=== PATIENT | male | born 1985 | race African-American/Black ===

== ENCOUNTER 2020-02-07 16:04 | Inpatient (IN) | payer OTHER, SELFPAY ==
[~2020-02-07 16:04] MED LIST: Iopamidol-370 76% 500 ML 1 ML ONE
[2020-02-07] MEDS ORDERED: Lidocaine Viscous Sol 2% 15 ml UD Cup ONE (16:35)
[2020-02-07] MEDS ORDERED: Haloperidol Lactate 5 MG/ML VIAL ONE (16:35)
[2020-02-07] MEDS ORDERED: Mag-Al 1200 mg/1200 mg/30 ML UDCUP ONE (16:35)
[2020-02-07 16:39] LABS: #Lymphocytes 0.9 thou/uL (1.20-3.40); #Monocytes 0.3 thou/uL (0.11-0.59); #Neutrophils 4.7 thou/uL (1.40-6.50); %Basophils 0.2 % (0.0-1.0); %Eosinophils 0.1 % (0.0-10.0); %Neutrophils 79.7 % (42.0-75.0); Hemoglobin 15.5 g/dL (14.0-18.0); Mean Corpuscular HGB CONC 33.8 g/dL (32.0-36.0); Mean Corpuscular Hemoglobin 30.8 pg (27.0-31.0); Mean Corpuscular Volume 91.3 fL (78.0-98.0); Mean Platelet Volume 6.4 fL (7.4-10.4); Platelet Count 326 thou/uL (130-400); Red Blood Cell (RBC) Count 5.02 mill/uL (4.70-6.10); White Blood Cell (WBC) Count 5.9 thou/uL (4.8-10.8)
[2020-02-07 16:58] LABS: ALT (SGPT) 32 U/L (8-55); AST (SGOT) 29 U/L (5-34); Alkaline Phosphatase 54 U/L (40-110); Anion Gap 16 mmol/L (10-20); BUN (Urea Nitrogen) 21 mg/dL (8.9-20.6); Bilirubin, Total 0.9 mg/dL (0.2-1.2); Calc. Creatinine Clearance 0 mL/min (70-130); Calcium 10.1 mg/dL (7.8-10.44); Carbon Dioxide 28 mmol/L (22-29); Chloride 100 mmol/L (98-107); Estimated GFR-MDRD 61; Globulin 3.5 g/dL (2.4-3.5); Glucose 123 mg/dL (70-105); Lipase 606 U/L (8-78); Potassium 4.5 mmol/L (3.5-5.1); Protein, Total 8.5 g/dL (6.0-8.3); Sodium 139 mmol/L (136-145)
[2020-02-07] MEDS ORDERED: Ondansetron PF 4 MG/2 ML Vial ONE (19:21)
[2020-02-07] MEDS ORDERED: Morphine 4 MG/ML VIAL ONE (19:21)
--- NOTE | 2020-02-07 19:25 | CT ---
CT OF THE ABDOMEN AND PELVIS WITH IV CONTRAST; 02/07/20 INDICATION: History of abdominal pain with nausea and vomiting. COMPARISON: Prior study dated 12/28/19. FINDINGS: The lung bases are clear. There is a tiny cyst within the right hepatic lobe which is stable appearin g. Gallbladder, pancreas, adrenal glands and spleen appear within normal limits. The kidneys reveal no d efinite acute abnormality. No free fluid or enlarged lymph nodes are evident. There is a normal appendix in the right lower quadrant. The unopacified large and small bowel are of normal caliber. No free fluid is evident in the pelvis. The bladder, rectum, and perirectal soft tissues are unremark able appearing. No definite acute osseous abnormality is evident. IMPRESSION: No CT explanation for the patient's abdominal pain and nausea and vomiting. POS: BH
--- NOTE | 2020-02-07 19:55 | PDOC.FPRHP ---
- History of Present Illness Chief Complaint: Abdominal Pain History of Present Illness: 34yo male presents with abdominal pain for 3 days. Pain started on Sunday, described as cramping pain, located midepigastric, no radiation, associated nausea and vomiting. Tried to stay hydrated and pain greatly improved on ay- was no longer vomiting. Pain returned on Sunday. Pain worse with food such as [place] fries. Hasn't eaten since Sunday. Reports drinking 2-3 beers on Sunday. Has been drinking gatorade and water to alleviate sx. Hx of abdominal pain and multiple ED visits but denies hx of pancreatitis.Denies fever, hematemesis, diarrhea, or sick contacts. ED Course: morphine, haldol, zofran, GI cocktail, 1L IVF - Allergies/Adverse Reactions Allergies Allergy/AdvReac Type Severity Reaction Status Date / Time codeine Allergy Verified 02/08/20 00:09 - History PMHx: Denies PSHx: Denies FHx: Mother- HTN Social: Occasional alcohol use. A couple drinks on weekends. Current smoker, 3-4 cigarettes per day. Rare Marijuana use once every 2-3 weeks. Works for [email or web address] and [employer] - Review of Systems General: reports: weight/appetite/sleep changes ( appetite). denies: fever/chills Eyes: denies: vision changes ENT: denies: nasal congestion, rhinorrhea Respiratory: denies: cough, congestion, shortness of breath Cardiovascular: denies: chest pain Gastrointestinal: reports: nausea, vomiting, abdominal pain Genitourinary: denies: dysuria, polyuria Skin: denies: rashes, itching Musculoskeletal: denies: pain, tenderness Neurological: denies: numbness, syncope - Vital signs BP: 156/97 HR: 57 RR: 17 Tmax: 98.5 - Physical Exam Constitutional: NAD, awake, alert and oriented, well developed HEENT: normocephalic and atraumatic, conjunctiva clear, no scleral icterus, grossly normal vision, grossly normal hearing, MMM, oropharynx clear Neck: supple, FROM Chest: no-tender to palpation Heart: RRR, normal S1/S2, no murmurs/rubs/gallops, pulses present, no edema Lungs: CTAB, no respiratory distress, no wheezing Abdomen: soft, bowel sounds present -Abdomen: tender to palpation midepigastric, negative Davis's sign Musculoskeletal: normal structure, normal tone Neurological: no focal deficit, normal sensation Skin: no rash/lesions, no jaundice Heme/Lymphatic: no unusual bruising or bleeding Psychiatric: normal mood and affect, intact recent and remote memory FMR H&P: Results - Labs Result Diagrams: 02/07/20 16:22 02/08/20 03:29 Lab results: WBC 5.9 thou/uL (4.8-10.8) 02/07/20 16:22 Hgb 15.5 g/dL (14.0-18.0) 02/07/20 16:22 Hct 45.8 % (42.0-52.0) 02/07/20 16:22 MCV 91.3 fL (78.0-98.0) 02/07/20 16:22 Plt Count 326 thou/uL (130-400) 02/07/20 16:22 Neutrophils % 79.7 % (42.0-75.0) H 02/07/20 16:22 Sodium 139 mmol/L (136-145) 02/07/20 16:22 Potassium 4.5 mmol/L (3.5-5.1) 02/07/20 16:22 Chloride 100 mmol/L (98-107) 02/07/20 16:22 Carbon Dioxide 28 mmol/L (22-29) 02/07/20 16:22 BUN 21 mg/dL (8.9-20.6) H 02/07/20 16:22 Creatinine 1.59 mg/dL (0.7-1.3) H 02/07/20 16:22 Glucose 123 mg/dL (70-105) H 02/07/20 16:22 Calcium 10.1 mg/dL (7.8-10.44) 02/07/20 16:22 Total Bilirubin 0.9 mg/dL (0.2-1.2) 02/07/20 16:22 AST 29 U/L (5-34) 02/07/20 16:22 ALT 32 U/L (8-55) 02/07/20 16:22 Alkaline Phosphatase 54 U/L (40-110) 02/07/20 16:22 Serum Total Protein 8.5 g/dL (6.0-8.3) H 02/07/20 16:22 Albumin 5.0 g/dL (3.5-5.0) 02/07/20 16:22 Lipase 606 U/L (8-78) H 02/07/20 16:22 FMR H&P: A/P - Plan #Pancreatitis -lipase 606, CT ab/pelv: no explanation for abd pain, N/V -Juan's criteria: 0 points -given 1L NS in ED, currently on LR @ 200ml/hr -zofran prn, morphine prn -clear liquid diet, will advance as tolerated -pending RUQ US, lipid panel #TTUU -BUN/Cr 03/06.59 -likely due to N/V and decrease po -treating with IVF as above Code: Full DVT ppx: SCDs Diet: Clears PCP: none Dispo: Admit inpatient medical, LOS>48hrs FMR H&P: Upper Level - Plan Date/Time: 02/07/201954 34yo previously healthy male presents for cramping abdominal pain, nausea and vomiting that started 01/03. Symptoms actually improved on 01/04 but returned the next day. He has not eaten since Sunday but has been able to drink water and Gatorade. Symptoms worse after eating especially foods like [place] fries. No hx of pancreatitis. Pain and nausea are now controlled after receiving Mrophine 8mg, Zofran 4mg, Haldol 15mg, GI cocktail and 1L NS. PE: VSS General: NAD CV: RRR, no murmur Pulm: CTA b/l Abdomen: Epigastric tenderness. Soft, No rebound or rigidity. A/P: Pancreatitis -Lipase 606 with epigastric pain on exam. CT abdomen/pelvis no acute findings. [place]:0. Zofran for nausea, Morphine PRN for pain. LR @200. Clear fluid diet, advance as tolerated. Admit to medical. TUTU - LR @200, BMP in AM. I, Miladis Cardenas, have evaluated this patient and agree with findings/plan as outlined by recording studio internship resident. Pertinent changes/additions are listed here. Addendum - Attending - Attending Attestation Date/Time: 02/08/20 [id number] I personally evaluated the patient and discussed the management with Dr. Pike. I agree with the History, Examination, Assessment and Plan documented above with any addition or exceptions noted below.
[2020-02-07] MEDS ORDERED: Ondansetron PF 4 MG/2 ML Vial IVP PRN (20:37)
[2020-02-07] MEDS ORDERED: Ondansetron ODT 4 MG TAB PO PRN (20:37)
[2020-02-07] MEDS ORDERED: Acetaminophen 650 MG Suppository PR PRN (20:37)
[2020-02-07] MEDS ORDERED: Acetaminophen 325 MG TAB PO PRN (20:37)
[2020-02-07] MEDS ORDERED: Morphine 2 MG/ML VIAL SLOW IVP PRN (20:39)
[2020-02-07 21:35] LABS: Bacteria/HPF None Seen HPF (None Seen); Bilirubin Negative (Negative); Blood, Urine Negative (Negative); Clarity Clear (Clear); Glucose, Urine (Dipstick) Normal (Negative); Ketone, Urine Negative (Negative); Leukocyte Negative Leu/uL (Negative); Nitrite Negative (Negative); Protein, Urine (Dipstick) 30 mg/dL (Neg-Trace); Squamous Epithelial None Seen HPF (0-3); Urobilinogen Normal mg/dL (Less than 2); WBC/HPF 0-3 HPF (0-3); pH, Urine 8.5 (5.0-9.0)
[2020-02-07 21:37] LABS: Specific Gravity, Urine 1.063 (1.002-1.036)
[2020-02-07] MEDS: Morphine 10 MG/ML VIAL SLOW IVP PRN (22:16)
[2020-02-07] MEDS: Lactated Ringer's 1,000 ML IV SCH (22:17)
[2020-02-08 00:26] VITALS: BMI 26.6
[2020-02-08] MEDS: Morphine 10 MG/ML VIAL SLOW IVP PRN (02:58)
[2020-02-08] MEDS: Lactated Ringer's 1,000 ML IV SCH ×5 (02:58→22:28)
[2020-02-08 04:16] LABS: ALT (SGPT) 24 U/L (8-55); AST (SGOT) 24 U/L (5-34); Albumin 3.9 g/dL (3.5-5.0); Alkaline Phosphatase 43 U/L (40-110); Anion Gap 10 mmol/L (10-20); BUN (Urea Nitrogen) 16 mg/dL (8.9-20.6); Calc. Creatinine Clearance 101 mL/min (70-130); Calcium 8.6 mg/dL (7.8-10.44); Carbon Dioxide 27 mmol/L (22-29); Cardiac Risk 2.7 (Less than 4.5); Chloride 100 mmol/L (98-107); Cholesterol 173 mg/dl (< 200 Desired); Estimated GFR-MDRD 79; Globulin 2.7 g/dL (2.4-3.5); Glucose 101 mg/dL (70-105); HDL Cholesterol 65 mg/dL (>60 Neg Risk); LDL Cholesterol, Calculated 96 mg/dL; Potassium 3.4 mmol/L (3.5-5.1); Protein, Total 6.6 g/dL (6.0-8.3); Sodium 134 mmol/L (136-145); Triglycerides 58 mg/dL (Less than 150)
--- NOTE | 2020-02-08 06:08 | PDOC.FM ---
- Subjective Subjective: No acute overnight events. Feeling improved this AM. Tolerated clear fluids last night, feeling somewhat hungry. Still has mild abdominal pain, bothers him intermittently. Denies nausea, vomiting. - Objective Vital Signs & Weight: Vital Signs (12 hours) Temp Pulse Resp BP Pulse Ox 02/08/20 04:00 97.8 F 77 14 129/69 99 02/07/20 22:08 99.1 F 61 16 149/83 H 98 Weight Weight 86.636 kg Result Diagrams: 02/07/20 16:22 02/08/20 03:29 Phys Exam - Physical Examination Constitutional: NAD HEENT: moist MMs Neck: supple Respiratory: clear to auscultation bilateral Cardiovascular: RRR, no significant murmur Gastrointestinal: soft, no distention, positive bowel sounds mild epigastric and LUQ tenderness, no RUQ tenderness Musculoskeletal: no edema Neurological: moves all 4 limbs Psychiatric: normal affect, A&O x 3 Skin: no rash Dx/Plan - Plan Plan: Pancreatitis Initial lipase 606, CT ab/pelv: no explanation for abd pain, N/V. [place]'s criteria: 0 points. given 1L NS in ED. Lipid panel wnl -currently on LR @ 200ml/hr -zofran prn, morphine prn -clear liquid diet, will advance when not requiring morphine -pending RUQ US -ASE protocol TUTU Initial BUN/Cr 21/1.59. Likely due to N/V and decrease po. -Cr improved to 1.26 today -treating with IVF as above -continue to monitor BMP Code: Full DVT ppx: SCDs Diet: Clears PCP: none Dispo: Admit inpatient medical, LOS>48hrs Addendum - Attending - Attending Attestation Date/Time: 02/08/20 1103 I personally evaluated the patient and discussed the management with Dr. Rolon. I agree with the History, Examination, Assessment and Plan documented above with any addition or exceptions noted below. The most likely cause of pancreatitis is alcohol use. We will advance diet once pain resolves without morphine.
[2020-02-08] MEDS ORDERED: Morphine 4 MG/ML VIAL SLOW IVP PRN (08:40)
--- NOTE | 2020-02-08 09:09 | ULT ---
RIGHT UPPER QUADRANT ABDOMINAL ULTRASOUND: HISTORY: Pancreatitis. COMPARISON: 11/19/2014 TECHNIQUE: Multiplanar bhatia-scale and color Doppler images were obtained in a right upper quadrant abdominal ult rasound. FINDINGS: The liver is normal in echogenicity without focal lesions or intrahepatic ductal dilatation. The gall bladder is normal without stones, sludge, gallbladder wall thickening or pericholecystic fluid. The c ommon bile duct is normal, measuring 3 mm. The visualized portions of the pancreas are unremarkable. The right kidney is normal in echogenicity without hydronephrosis or calculus and measures 10.7 cm in length. IMPRESSION: Unremarkable examination. POS: EAA
[2020-02-08 12:23] LABS: SARS-CoV-2 MS2 Positive; SARS-CoV-2 N Gene Negative; SARS-CoV-2 S Gene Negative; SARS-CoV-2 by NAA Not Detected (NotDetected); SARS-CoV-2 orf1ab Negative
[2020-02-09] MEDS: Lactated Ringer's 1,000 ML IV SCH ×2 (03:08→09:39)
--- NOTE | 2020-02-09 05:40 | PDOC.FM ---
- Subjective Subjective: Patient reports he slept well overnight. He reports mild abdominal pain after eating last pm but says it resolved shortly afterward without medication. He denies headache, chest pain, SOB, nausea, and vomiting. - Objective MAR Reviewed: Yes Vital Signs & Weight: Vital Signs (12 hours) Temp Pulse Resp BP Pulse Ox 02/08/20 20:00 98.3 F 78 18 128/64 99 Weight Weight 86.636 kg I&O: 02/07/20 02/08/20 02/09/20 06:59 06:59 06:59 Intake Total 4080 2900 Balance 4080 2900 Result Diagrams: 02/07/20 16:22 02/09/20 06:24 Phys Exam - Physical Examination Constitutional: NAD HEENT: moist MMs, sclera anicteric Neck: supple, full ROM Respiratory: no wheezing, clear to auscultation bilateral Cardiovascular: RRR, no significant murmur Gastrointestinal: soft, non-tender, no distention, positive bowel sounds Musculoskeletal: no edema, pulses present Neurological: non-focal, moves all 4 limbs Psychiatric: normal affect, A&O x 3 Skin: no rash, cap refill <2 seconds Dx/Plan - Plan Plan: Pancreatitis Initial lipase 606. CT ab/pelv negative for acute process. Bradley's criteria: 0 points. Lipid panel wnl. RUQ US negative. -Discontinue LR @ 200ml/hr once PO tolerated -zofran prn for nausea, tylenol prn for pain -Advance diet as tolerated -ASE protocol TUTU, improved 2/2 dehydration Initial BUN/Cr 21/1.59. Likely due to N/V and decrease po. Trended BUN/Cr 16/1.26 -> 11/2.21. -Encourage PO intake as tolerated -Monitor with daily lab Code: Full DVT ppx: SCDs PCP: none, [facility] Dispo: Home pending PO tolerance
[2020-02-09 06:54] LABS: ALT (SGPT) 24 U/L (8-55); AST (SGOT) 20 U/L (5-34); Albumin 3.8 g/dL (3.5-5.0); Alkaline Phosphatase 44 U/L (40-110); Anion Gap 10 mmol/L (10-20); BUN (Urea Nitrogen) 11 mg/dL (8.9-20.6); Bilirubin, Total 1.2 mg/dL (0.2-1.2); Calc. Creatinine Clearance 105 mL/min (70-130); Calcium 8.9 mg/dL (7.8-10.44); Carbon Dioxide 27 mmol/L (22-29); Chloride 101 mmol/L (98-107); Estimated GFR-MDRD 83; Globulin 2.5 g/dL (2.4-3.5); Glucose 93 mg/dL (70-105); Potassium 4.1 mmol/L (3.5-5.1); Protein, Total 6.3 g/dL (6.0-8.3); Sodium 134 mmol/L (136-145)
[2020-02-09 07:53] VITALS: BP 135/79; TEMP 98.7
--- NOTE | 2020-02-09 13:04 | PRG ---
DATE OF SERVICE: 02/09/2020 Mr. Silver was admitted with acute pancreatitis likely secondary to alcohol. His ultrasound of the gallbladder was completely normal as was visualization of the common bile duct. This morning, he looks and feels much better, and is anxious to go home. He is having virtually no pain, tolerated breakfast without difficulty. He will eat lunch, and if tolerated, will be discharged. Job ID: [id number]
== END 2020-02-09 14:00 | disposition home or self-care (01) | DRG 439 ==
LOC: ERS 16:04 → ONC 20:09
PROVIDERS: ADMIT Family Medicine; ATTEND Family Medicine
DX: K85.20 Alcohol induced acute pancreatitis without necrosis or infection (principal); N17.9 Acute kidney failure, unspecified; F10.288 Alcohol dependence with other alcohol-induced disorder; F17.210 Nicotine dependence, cigarettes, uncomplicated; E86.0 Dehydration; F31.9 Bipolar disorder, unspecified; Z88.6 Allergy status to analgesic agent; Z20.828 Contact with and (suspected) exposure to other viral communicable diseases
CPT/HCPCS: 36415; 74177; 76705; 80053; 80061; 81003; 81015; 83615; 83690; 85025; 87635; 96365; 96375; J1630; J2270; J2405; Q9967; U0003

== ENCOUNTER 2020-05-11 16:01 | Emergency (ER) | payer SELFPAY ==
[2020-05-11] MEDS ORDERED: Lidocaine Viscous Sol 2% 15 ml UD Cup ONE (17:18)
[2020-05-11] MEDS ORDERED: Morphine 4 MG/ML VIAL ONE (17:18)
[2020-05-11] MEDS ORDERED: Mag-Al 1200 mg/1200 mg/30 ML UDCUP ONE (17:18)
[2020-05-11] MEDS ORDERED: Ondansetron PF 4 MG/2 ML Vial ONE (17:18)
--- NOTE | 2020-05-11 17:22 | ULT ---
Ultrasound of theright upper quadrant: 05/11/2020 COMPARISON:02/08/2020 HISTORY:Right upper quadrant pain TECHNIQUE: Multiplanar grayscale sonographic imaging of theright upper quadrant provided FINDINGS:The pancreas is obscured by bowel gas. No focal liver lesion is noted. No gallbladder wall thickening or pericholecystic fluid. The right kidney measures 9.3 cm in craniocaudal dimension and demonstrates no stone, hydronephrosis, or mass. The common bile duct measures 3 mm, within normal limits. No discrete gallstone is evident on this exam. IMPRESSION:No evidence for cholelithiasis, cholecystitis, or biliary dilatation.
[2020-05-11 17:29] LABS: #Basophils 0.1 thou/uL (0.0-0.2); #Lymphocytes 1.9 thou/uL (1.20-3.40); #Neutrophils 4.8 thou/uL (1.40-6.50); %Basophils 0.8 % (0.0-1.0); %Eosinophils 0.1 % (0.0-10.0); %Lymphocytes 24.4 % (21.0-51.0); %Monocytes 13.2 % (0.0-10.0); %Neutrophils 61.5 % (42.0-75.0); Hemoglobin 14.3 g/dL (14.0-18.0); Mean Corpuscular HGB CONC 32.9 g/dL (32.0-36.0); Mean Corpuscular Hemoglobin 29.5 pg (27.0-31.0); Mean Corpuscular Volume 89.7 fL (78.0-98.0); Mean Platelet Volume 6.5 fL (7.4-10.4); Platelet Count 319 thou/uL (130-400); Red Blood Cell (RBC) Count 4.83 mill/uL (4.70-6.10); White Blood Cell (WBC) Count 7.8 thou/uL (4.8-10.8)
[2020-05-11 17:54] LABS: ALT (SGPT) 38 U/L (8-55); AST (SGOT) 35 U/L (5-34); Albumin 4.8 g/dL (3.5-5.0); Alkaline Phosphatase 50 U/L (40-110); Anion Gap 14 mmol/L (10-20); BUN (Urea Nitrogen) 19 mg/dL (8.9-20.6); Calc. Creatinine Clearance 0 mL/min (70-130); Calcium 9.8 mg/dL (7.8-10.44); Carbon Dioxide 27 mmol/L (22-29); Chloride 101 mmol/L (98-107); Globulin 3.6 g/dL (2.4-3.5); Glucose 102 mg/dL (70-105); Lipase 15 U/L (8-78); Potassium 3.5 mmol/L (3.5-5.1); Protein, Total 8.4 g/dL (6.0-8.3); Sodium 138 mmol/L (136-145)
[2020-05-11] MEDS ORDERED: diphenhydrAMINE 50 MG/ML VIAL ONE (18:19)
[2020-05-11] MEDS ORDERED: Haloperidol Lactate 5 MG/ML VIAL ONE (18:19)
--- NOTE | 2020-05-11 19:00 | CT ---
CT ABDOMEN AND PELVIS WITH IV CONTRAST: 05/11/20 PROVIDED CLINICAL HISTORY: Epigastric pain. FINDINGS: Comparison 02/07/20. The visualized lung bases are free of significant opacity. The liver, spleen, pancreas, kidneys and adrenal glands demonstrate no significant abnormality. There is no bowel dilatation, inflammatory fat stranding free fluid or lymph node enlargement apparen t. There is no evidence for free air. The appendix appears normal. There is equivocal mural thickenin g involving the proximal jejunum, not well evaluated in the absence of oral contrast. The regional major vascular structures appear unremarkable. The osseous structures demonstrate no concerning lytic or blastic lesions. IMPRESSION: Apparent mural thickening involving proximal jejunum. Correlate with concerns for enteritis. POS: CARLO
== END 2020-05-11 20:24 | disposition home or self-care (01) ==
LOC: ERS 16:01
DX: K29.70 Gastritis, unspecified, without bleeding (principal); F17.210 Nicotine dependence, cigarettes, uncomplicated
CPT/HCPCS: 36415; 74177; 76705; 80053; 83690; 85025; 96374; 96375; J1200; J1630; J2270; J2405; Q9967

== ENCOUNTER 2020-07-24 13:49 | Emergency (ER) | payer SELFPAY ==
[2020-07-24 14:30] LABS: Hemoglobin 15.1 g/dL (14.0-18.0); Mean Corpuscular HGB CONC 32.6 g/dL (32.0-36.0); Mean Corpuscular Hemoglobin 29.8 pg (27.0-31.0); Mean Corpuscular Volume 91.5 fL (78.0-98.0); Mean Platelet Volume 6.1 fL (7.4-10.4); Platelet Count 304 thou/uL (130-400); RBC Distribution Width 11.1 % (11.5-14.5); Red Blood Cell (RBC) Count 5.06 mill/uL (4.70-6.10); White Blood Cell (WBC) Count 6.1 thou/uL (4.8-10.8)
[2020-07-24 14:48] LABS: ALT (SGPT) 25 U/L (8-55); AST (SGOT) 24 U/L (5-34); Albumin 4.7 g/dL (3.5-5.0); Alkaline Phosphatase 48 U/L (40-110); Anion Gap 18 mmol/L (10-20); BUN (Urea Nitrogen) 15 mg/dL (8.9-20.6); Band 2 % (5-11); Bilirubin, Total 1.2 mg/dL (0.2-1.2); Calc. Creatinine Clearance 0 mL/min (70-130); Carbon Dioxide 24 mmol/L (22-29); Chloride 103 mmol/L (98-107); Globulin 3.5 g/dL (2.4-3.5); Glucose 112 mg/dL (70-105); Lipase 84 U/L (8-78); Lymphocytes 38 % (21-51); MDiff Complete? YES; Monocytes 8 % (0-10); Neutrophil 46 % (42-75); Platelet Morphology Comment Appears Adequate; Potassium 3.5 mmol/L (3.5-5.1); Protein, Total 8.2 g/dL (6.0-8.3); RBC Morphology Normal; Reactive Lymphocytes 6 % (0-10); Sodium 141 mmol/L (136-145)
[2020-07-24] MEDS ORDERED: Morphine 4 MG/ML VIAL ONE ×2 (16:08→18:29)
[2020-07-24] MEDS ORDERED: Pantoprazole 40 MG VIAL ONE (16:09)
[2020-07-24] MEDS ORDERED: Ondansetron PF 4 MG/2 ML Vial ONE (16:09)
== END 2020-07-24 18:33 | disposition home or self-care (01) ==
LOC: ERS 13:49
DX: K85.90 Acute pancreatitis without necrosis or infection, unspecified (principal); F17.210 Nicotine dependence, cigarettes, uncomplicated
CPT/HCPCS: 36415; 74177; 76705; 80053; 83690; 85025; 86140; 93005; 96372; 96374; 96375; C9113; J2270; J2405; Q9967

== ENCOUNTER 2020-08-15 10:49 | Emergency (ER) | payer SELFPAY ==
[2020-08-15] MEDS ORDERED: Ondansetron PF 4 MG/2 ML Vial ONE (11:14)
[2020-08-15] MEDS ORDERED: Ketorolac Tromethamine 30 MG/ML VIAL ONE (11:14)
[2020-08-15 11:22] LABS: #Lymphocytes 1.2 thou/uL (1.20-3.40); #Monocytes 0.3 thou/uL (0.11-0.59); #Neutrophils 4.5 thou/uL (1.40-6.50); %Eosinophils 0.5 % (0.0-10.0); %Lymphocytes 19.7 % (21.0-51.0); %Monocytes 4.9 % (0.0-10.0); %Neutrophils 74.9 % (42.0-75.0); Hemoglobin 13.8 g/dL (14.0-18.0); Mean Corpuscular HGB CONC 33.4 g/dL (32.0-36.0); Mean Corpuscular Hemoglobin 30.8 pg (27.0-31.0); Mean Corpuscular Volume 92.2 fL (78.0-98.0); Platelet Count 343 thou/uL (130-400); RBC Distribution Width 11.4 % (11.5-14.5); Red Blood Cell (RBC) Count 4.47 mill/uL (4.70-6.10); White Blood Cell (WBC) Count 6.1 thou/uL (4.8-10.8)
[2020-08-15 11:23] LABS: Bacteria/HPF None Seen HPF (None Seen); Bilirubin Negative (Negative); Blood, Urine Negative (Negative); Clarity Turbid (Clear); Glucose, Urine (Dipstick) Normal (Negative); Ketone, Urine Negative (Negative); Leukocyte Negative Leu/uL (Negative); Nitrite Negative (Negative); Protein, Urine (Dipstick) 70 mg/dL (Neg-Trace); RBC/HPF None Seen HPF (0-3); Specific Gravity, Urine 1.024 (1.002-1.036); Squamous Epithelial None Seen HPF (0-3); Urobilinogen Normal mg/dL (Less than 2); WBC/HPF None Seen HPF (0-3); pH, Urine 8.5 (5.0-9.0)
[2020-08-15 11:41] LABS: ALT (SGPT) 40 U/L (8-55); AST (SGOT) 41 U/L (5-34); Albumin 4.5 g/dL (3.5-5.0); Alkaline Phosphatase 47 U/L (40-110); Anion Gap 12 mmol/L (10-20); BUN (Urea Nitrogen) 10 mg/dL (8.9-20.6); Bilirubin, Total 0.5 mg/dL (0.2-1.2); CK (CPK) 1680 U/L (30-200); Calc. Creatinine Clearance 0 mL/min (70-130); Calcium 10.1 mg/dL (7.8-10.44); Carbon Dioxide 29 mmol/L (22-29); Chloride 108 mmol/L (98-107); Glucose 138 mg/dL (70-105); Lipase 115 U/L (8-78); Potassium 4.2 mmol/L (3.5-5.1); Protein, Total 7.5 g/dL (6.0-8.3); Sodium 145 mmol/L (136-145)
[2020-08-15 12:03] LABS: CKMB 4.2 ng/mL (0-6.6)
[2020-08-15] MEDS ORDERED: Lidocaine Viscous Sol 2% 15 ml UD Cup ONE (13:28)
[2020-08-15] MEDS ORDERED: Milk Of Magnesia 30 ML UDCUP ONE (13:28)
[2020-08-15] MEDS ORDERED: Metoclopramide HCl 10 MG/2 ML VIAL ONE (13:39)
== END 2020-08-15 14:50 | disposition home or self-care (01) ==
LOC: ERS 10:49
DX: M62.82 Rhabdomyolysis (principal); R10.13 Epigastric pain; R11.2 Nausea with vomiting, unspecified; F17.210 Nicotine dependence, cigarettes, uncomplicated
CPT/HCPCS: 71045; 80053; 81003; 81015; 82550; 82553; 83690; 84484; 85025; 93005; 96365; 96375; J1885; J2405; J2765